=== PATIENT | female | born 1960 | race Caucasian/White ===

== ENCOUNTER 2024-06-26 09:38 | Outpatient (CLI) | payer OTHER | END 2024-06-26 09:39 | disposition home or self-care (01) | LOC: CSHWCC 09:38 | PROVIDERS: ATTEND Nurse Practitioner Family | DX: N30.41 Irradiation cystitis with hematuria (principal) | CPT/HCPCS: 99213; G0463 ==

== ENCOUNTER 2024-07-25 10:13 | Outpatient (CLI) | payer OTHER | END 2024-07-25 10:14 | disposition home or self-care (01) | LOC: CSHWCC 10:13 | PROVIDERS: ATTEND Nurse Practitioner Family | DX: N30.41 Irradiation cystitis with hematuria (principal); N39.498 Other specified urinary incontinence | CPT/HCPCS: G0277 ==

== ENCOUNTER 2024-07-26 10:13 | Outpatient (CLI) | payer OTHER | END 2024-07-26 10:14 | disposition home or self-care (01) | LOC: CSHWCC 10:13 | PROVIDERS: ATTEND Nurse Practitioner Family | DX: N30.41 Irradiation cystitis with hematuria (principal); N39.498 Other specified urinary incontinence | CPT/HCPCS: G0277 ==

== ENCOUNTER 2024-07-27 09:52 | Outpatient (CLI) | payer OTHER | END 2024-07-27 09:53 | disposition home or self-care (01) | LOC: CSHWCC 09:52 | PROVIDERS: ATTEND Nurse Practitioner Family | DX: N30.41 Irradiation cystitis with hematuria (principal); N39.498 Other specified urinary incontinence | CPT/HCPCS: G0277 ==

== ENCOUNTER 2024-07-30 08:30 | Outpatient (CLI) | payer OTHER | END 2024-07-30 08:31 | disposition home or self-care (01) | LOC: CSHWCC 08:30 | PROVIDERS: ATTEND Nurse Practitioner Family | DX: N30.41 Irradiation cystitis with hematuria (principal); N39.498 Other specified urinary incontinence | CPT/HCPCS: G0277 ==

== ENCOUNTER 2024-07-31 08:13 | Outpatient (CLI) | payer OTHER | END 2024-07-31 08:14 | disposition home or self-care (01) | LOC: CSHWCC 08:13 | PROVIDERS: ATTEND Nurse Practitioner Family | DX: N30.41 Irradiation cystitis with hematuria (principal); N39.498 Other specified urinary incontinence | CPT/HCPCS: G0277 ==

== ENCOUNTER 2024-08-01 09:05 | Outpatient (CLI) | payer OTHER | END 2024-08-01 09:06 | disposition home or self-care (01) | LOC: CSHWCC 09:05 | PROVIDERS: ATTEND Nurse Practitioner Family | DX: N30.41 Irradiation cystitis with hematuria (principal); N39.498 Other specified urinary incontinence | CPT/HCPCS: G0277 ==

== ENCOUNTER 2024-08-02 10:20 | Outpatient (CLI) | payer OTHER | END 2024-08-02 10:21 | disposition home or self-care (01) | LOC: CSHWCC 10:20 | PROVIDERS: ATTEND Nurse Practitioner Family | DX: N30.41 Irradiation cystitis with hematuria (principal); N39.498 Other specified urinary incontinence | CPT/HCPCS: G0277 ==

== ENCOUNTER 2024-08-06 08:27 | Outpatient (CLI) | payer OTHER | END 2024-08-06 08:28 | disposition home or self-care (01) | LOC: CSHWCC 08:27 | PROVIDERS: ATTEND Nurse Practitioner Family | DX: N30.41 Irradiation cystitis with hematuria (principal); N39.498 Other specified urinary incontinence | CPT/HCPCS: G0277 ==

== ENCOUNTER 2024-08-07 10:39 | Outpatient (CLI) | payer OTHER | END 2024-08-07 10:40 | disposition home or self-care (01) | LOC: CSHWCC 10:39 | PROVIDERS: ATTEND Nurse Practitioner Family | DX: N30.41 Irradiation cystitis with hematuria (principal); N39.498 Other specified urinary incontinence | CPT/HCPCS: G0277 ==

== ENCOUNTER 2024-08-08 11:03 | Outpatient (CLI) | payer OTHER | END 2024-08-08 11:04 | disposition home or self-care (01) | LOC: CSHWCC 11:03 | PROVIDERS: ATTEND Nurse Practitioner Family | DX: N30.41 Irradiation cystitis with hematuria (principal); N39.498 Other specified urinary incontinence | CPT/HCPCS: G0277 ==

== ENCOUNTER 2024-08-09 08:52 | Outpatient (CLI) | payer OTHER | END 2024-08-09 08:53 | disposition home or self-care (01) | LOC: CSHWCC 08:52 | PROVIDERS: ATTEND Nurse Practitioner Family | DX: N30.41 Irradiation cystitis with hematuria (principal); N39.498 Other specified urinary incontinence | CPT/HCPCS: G0277 ==

== ENCOUNTER 2024-08-13 09:23 | Outpatient (CLI) | payer OTHER | END 2024-08-13 09:24 | disposition home or self-care (01) | LOC: CSHWCC 09:23 | PROVIDERS: ATTEND Nurse Practitioner Family | DX: N30.41 Irradiation cystitis with hematuria (principal); N39.498 Other specified urinary incontinence | CPT/HCPCS: G0277 ==

== ENCOUNTER 2024-08-14 10:09 | Outpatient (CLI) | payer OTHER | END 2024-08-14 10:10 | disposition home or self-care (01) | LOC: CSHWCC 10:09 | PROVIDERS: ATTEND Nurse Practitioner Family | DX: N30.41 Irradiation cystitis with hematuria (principal); N39.498 Other specified urinary incontinence | CPT/HCPCS: G0277 ==

== ENCOUNTER 2024-08-16 15:50 | Outpatient (CLI) | payer OTHER | END 2024-08-16 15:51 | disposition home or self-care (01) | LOC: CSHWCC 15:50 | PROVIDERS: ATTEND Nurse Practitioner Family | DX: N30.41 Irradiation cystitis with hematuria (principal); N39.498 Other specified urinary incontinence | CPT/HCPCS: G0277 ==

== ENCOUNTER 2024-08-17 08:46 | Outpatient (CLI) | payer OTHER | END 2024-08-17 08:47 | disposition home or self-care (01) | LOC: CSHWCC 08:46 | PROVIDERS: ATTEND Nurse Practitioner Family | DX: N30.41 Irradiation cystitis with hematuria (principal); N39.498 Other specified urinary incontinence | CPT/HCPCS: G0277 ==

== ENCOUNTER 2024-08-20 10:36 | Outpatient (CLI) | payer OTHER | END 2024-08-20 10:37 | disposition home or self-care (01) | LOC: CSHWCC 10:36 | PROVIDERS: ATTEND Nurse Practitioner Family | DX: N30.41 Irradiation cystitis with hematuria (principal); N39.498 Other specified urinary incontinence | CPT/HCPCS: G0277 ==

== ENCOUNTER 2024-08-21 08:48 | Outpatient (CLI) | payer OTHER | END 2024-08-21 08:49 | disposition home or self-care (01) | LOC: CSHWCC 08:48 | PROVIDERS: ATTEND Nurse Practitioner Family | DX: N30.41 Irradiation cystitis with hematuria (principal); N39.498 Other specified urinary incontinence | CPT/HCPCS: G0277 ==

== ENCOUNTER 2024-08-22 08:53 | Outpatient (CLI) | payer OTHER | END 2024-08-22 08:54 | disposition home or self-care (01) | LOC: CSHWCC 08:53 | PROVIDERS: ATTEND Nurse Practitioner Family | DX: N30.41 Irradiation cystitis with hematuria (principal); N39.498 Other specified urinary incontinence | CPT/HCPCS: G0277 ==

== ENCOUNTER 2024-08-28 08:21 | Outpatient (CLI) | payer OTHER | END 2024-08-28 08:22 | disposition home or self-care (01) | LOC: CSHWCC 08:21 | PROVIDERS: ATTEND Nurse Practitioner Family | DX: N30.41 Irradiation cystitis with hematuria (principal); N39.498 Other specified urinary incontinence | CPT/HCPCS: G0277 ==

== ENCOUNTER 2024-08-29 08:17 | Outpatient (CLI) | payer OTHER | END 2024-08-29 08:18 | disposition home or self-care (01) | LOC: CSHWCC 08:17 | PROVIDERS: ATTEND Nurse Practitioner Family | DX: N30.41 Irradiation cystitis with hematuria (principal); N39.498 Other specified urinary incontinence | CPT/HCPCS: G0277 ==

== ENCOUNTER 2024-08-30 08:36 | Outpatient (CLI) | payer OTHER | END 2024-08-30 08:37 | disposition home or self-care (01) | LOC: CSHWCC 08:36 | PROVIDERS: ATTEND Nurse Practitioner Family | DX: N30.41 Irradiation cystitis with hematuria (principal); N39.498 Other specified urinary incontinence | CPT/HCPCS: G0277 ==

== ENCOUNTER 2024-09-03 10:49 | Outpatient (CLI) | payer OTHER | END 2024-09-03 10:50 | disposition home or self-care (01) | LOC: CSHWCC 10:49 | PROVIDERS: ATTEND Nurse Practitioner Family | DX: N30.41 Irradiation cystitis with hematuria (principal); N39.498 Other specified urinary incontinence | CPT/HCPCS: G0277 ==

== ENCOUNTER 2024-09-04 08:36 | Outpatient (CLI) | payer OTHER | END 2024-09-04 08:37 | disposition home or self-care (01) | LOC: CSHWCC 08:36 | PROVIDERS: ATTEND Nurse Practitioner Family | DX: N30.41 Irradiation cystitis with hematuria (principal); N39.498 Other specified urinary incontinence | CPT/HCPCS: G0277 ==

== ENCOUNTER 2024-09-05 09:45 | Outpatient (CLI) | payer OTHER | END 2024-09-05 09:46 | disposition home or self-care (01) | LOC: CSHWCC 09:45 | PROVIDERS: ATTEND Nurse Practitioner Family | DX: N30.41 Irradiation cystitis with hematuria (principal); N39.498 Other specified urinary incontinence | CPT/HCPCS: G0277 ==

== ENCOUNTER 2024-09-10 10:03 | Outpatient (CLI) | payer OTHER | END 2024-09-10 10:04 | disposition home or self-care (01) | LOC: CSHWCC 10:03 | PROVIDERS: ATTEND Nurse Practitioner Family | DX: N30.41 Irradiation cystitis with hematuria (principal); N39.498 Other specified urinary incontinence | CPT/HCPCS: G0277 ==

== ENCOUNTER 2024-09-11 08:56 | Outpatient (CLI) | payer OTHER | END 2024-09-11 08:57 | disposition home or self-care (01) | LOC: CSHWCC 08:56 | PROVIDERS: ATTEND Nurse Practitioner Family | DX: N30.41 Irradiation cystitis with hematuria (principal); N39.498 Other specified urinary incontinence | CPT/HCPCS: G0277 ==

== ENCOUNTER 2024-09-12 09:04 | Outpatient (CLI) | payer OTHER | END 2024-09-12 09:05 | disposition home or self-care (01) | LOC: CSHWCC 09:04 | PROVIDERS: ATTEND Nurse Practitioner Family | DX: N30.41 Irradiation cystitis with hematuria (principal); N39.498 Other specified urinary incontinence | CPT/HCPCS: G0277 ==

== ENCOUNTER 2024-09-13 08:45 | Outpatient (CLI) | payer OTHER | END 2024-09-13 08:46 | disposition home or self-care (01) | LOC: CSHWCC 08:45 | PROVIDERS: ATTEND Nurse Practitioner Family | DX: N30.41 Irradiation cystitis with hematuria (principal); N39.498 Other specified urinary incontinence | CPT/HCPCS: G0277 ==

== ENCOUNTER 2024-09-17 08:57 | Outpatient (CLI) | payer OTHER | END 2024-09-17 08:58 | disposition home or self-care (01) | LOC: CSHWCC 08:57 | PROVIDERS: ATTEND Nurse Practitioner Family | DX: N30.41 Irradiation cystitis with hematuria (principal); N39.498 Other specified urinary incontinence | CPT/HCPCS: G0277 ==

== ENCOUNTER 2024-09-18 09:01 | Outpatient (CLI) | payer OTHER | END 2024-09-18 09:02 | disposition home or self-care (01) | LOC: CSHWCC 09:01 | PROVIDERS: ATTEND Nurse Practitioner Family | DX: N30.41 Irradiation cystitis with hematuria (principal); N39.498 Other specified urinary incontinence | CPT/HCPCS: G0277 ==

== ENCOUNTER 2024-09-19 08:54 | Outpatient (CLI) | payer OTHER | END 2024-09-19 08:55 | disposition home or self-care (01) | LOC: CSHWCC 08:54 | PROVIDERS: ATTEND Nurse Practitioner Family | DX: N30.41 Irradiation cystitis with hematuria (principal); N39.498 Other specified urinary incontinence | CPT/HCPCS: G0277 ==

== ENCOUNTER 2024-09-20 09:31 | Outpatient (CLI) | payer OTHER | END 2024-09-20 09:32 | disposition home or self-care (01) | LOC: CSHWCC 09:31 | PROVIDERS: ATTEND Nurse Practitioner Family | DX: N30.41 Irradiation cystitis with hematuria (principal); N39.498 Other specified urinary incontinence | CPT/HCPCS: G0277 ==

== ENCOUNTER 2024-09-21 09:11 | Outpatient (CLI) | payer OTHER | END 2024-09-21 09:12 | disposition home or self-care (01) | LOC: CSHWCC 09:11 | PROVIDERS: ATTEND Nurse Practitioner Family | DX: N30.41 Irradiation cystitis with hematuria (principal); N39.498 Other specified urinary incontinence | CPT/HCPCS: G0277 ==

== ENCOUNTER 2024-09-24 08:55 | Outpatient (CLI) | payer OTHER | END 2024-09-24 08:56 | disposition home or self-care (01) | LOC: CSHWCC 08:55 | PROVIDERS: ATTEND Nurse Practitioner Family | DX: T70.0XXD Otitic barotrauma, subsequent encounter (principal); N30.41 Irradiation cystitis with hematuria; N39.498 Other specified urinary incontinence ==

== ENCOUNTER 2024-09-25 08:36 | Outpatient (CLI) | payer OTHER | END 2024-09-25 08:37 | disposition home or self-care (01) | LOC: CSHWCC 08:36 | PROVIDERS: ATTEND Nurse Practitioner Family | DX: N30.41 Irradiation cystitis with hematuria (principal); N39.498 Other specified urinary incontinence; T70.0XXD Otitic barotrauma, subsequent encounter | CPT/HCPCS: G0277 ==

== ENCOUNTER 2024-09-26 08:27 | Outpatient (CLI) | payer OTHER | END 2024-09-26 08:28 | disposition home or self-care (01) | LOC: CSHWCC 08:27 | PROVIDERS: ATTEND Nurse Practitioner Family | DX: N30.41 Irradiation cystitis with hematuria (principal); N39.498 Other specified urinary incontinence; T70.0XXD Otitic barotrauma, subsequent encounter | CPT/HCPCS: G0277 ==

== ENCOUNTER 2024-09-28 08:17 | Outpatient (CLI) | payer OTHER | END 2024-09-28 08:18 | disposition home or self-care (01) | LOC: CSHWCC 08:17 | PROVIDERS: ATTEND Nurse Practitioner Family | DX: T70.0XXD Otitic barotrauma, subsequent encounter (principal); N30.41 Irradiation cystitis with hematuria; N39.498 Other specified urinary incontinence | CPT/HCPCS: G0277 ==

== ENCOUNTER 2024-10-01 09:10 | Outpatient (CLI) | payer OTHER | END 2024-10-01 09:11 | disposition home or self-care (01) | LOC: CSHWCC 09:10 | PROVIDERS: ATTEND Nurse Practitioner Family | DX: T70.0XXD Otitic barotrauma, subsequent encounter (principal); N30.41 Irradiation cystitis with hematuria; N39.498 Other specified urinary incontinence | CPT/HCPCS: G0277 ==

== ENCOUNTER 2024-10-02 09:22 | Outpatient (CLI) | payer OTHER | END 2024-10-02 09:23 | disposition home or self-care (01) | LOC: CSHWCC 09:22 | PROVIDERS: ATTEND Nurse Practitioner Family | DX: N30.41 Irradiation cystitis with hematuria (principal); N39.498 Other specified urinary incontinence; T70.0XXD Otitic barotrauma, subsequent encounter | CPT/HCPCS: G0277 ==

== ENCOUNTER 2024-10-03 09:28 | Outpatient (CLI) | payer OTHER | END 2024-10-03 09:29 | disposition home or self-care (01) | LOC: CSHWCC 09:28 | PROVIDERS: ATTEND Nurse Practitioner Family | DX: N30.41 Irradiation cystitis with hematuria (principal); N39.498 Other specified urinary incontinence; T70.0XXD Otitic barotrauma, subsequent encounter | CPT/HCPCS: G0277 ==

== ENCOUNTER 2024-10-05 08:19 | Outpatient (CLI) | payer OTHER | END 2024-10-05 08:20 | disposition home or self-care (01) | LOC: CSHWCC 08:19 | PROVIDERS: ATTEND Nurse Practitioner Family | DX: T70.0XXD Otitic barotrauma, subsequent encounter (principal); N30.41 Irradiation cystitis with hematuria; N39.498 Other specified urinary incontinence | CPT/HCPCS: G0277 ==

== ENCOUNTER 2024-10-08 09:34 | Outpatient (CLI) | payer OTHER | END 2024-10-08 09:35 | disposition home or self-care (01) | LOC: CSHWCC 09:34 | PROVIDERS: ATTEND Nurse Practitioner Family | DX: T70.0XXD Otitic barotrauma, subsequent encounter (principal); N30.41 Irradiation cystitis with hematuria; N39.498 Other specified urinary incontinence | CPT/HCPCS: G0277 ==

== ENCOUNTER 2024-10-09 09:47 | Outpatient (CLI) | payer OTHER | END 2024-10-09 09:48 | disposition home or self-care (01) | LOC: CSHWCC 09:47 | PROVIDERS: ATTEND Nurse Practitioner Family | DX: T70.0XXD Otitic barotrauma, subsequent encounter (principal); N30.41 Irradiation cystitis with hematuria; N39.498 Other specified urinary incontinence | CPT/HCPCS: G0277 ==

== ENCOUNTER 2024-10-11 08:29 | Outpatient (CLI) | payer OTHER | END 2024-10-11 08:30 | disposition home or self-care (01) | LOC: CSHWCC 08:29 | PROVIDERS: ATTEND Family Medicine | DX: N30.41 Irradiation cystitis with hematuria (principal); N39.498 Other specified urinary incontinence; T70.0XXD Otitic barotrauma, subsequent encounter | CPT/HCPCS: G0277 ==

== ENCOUNTER 2024-10-15 11:08 | Outpatient (CLI) | payer OTHER | END 2024-10-15 11:09 | disposition home or self-care (01) | LOC: CSHWCC 11:08 | PROVIDERS: ATTEND Family Medicine | DX: N30.41 Irradiation cystitis with hematuria (principal); N39.498 Other specified urinary incontinence; T70.0XXD Otitic barotrauma, subsequent encounter | CPT/HCPCS: G0277 ==

== ENCOUNTER 2024-10-16 09:12 | Outpatient (CLI) | payer OTHER | END 2024-10-16 09:13 | disposition home or self-care (01) | LOC: CSHWCC 09:12 | PROVIDERS: ATTEND Nurse Practitioner Family | DX: T70.0XXD Otitic barotrauma, subsequent encounter (principal); N30.41 Irradiation cystitis with hematuria; N39.498 Other specified urinary incontinence | CPT/HCPCS: G0277 ==

== ENCOUNTER 2024-10-17 12:01 | Outpatient (CLI) | payer OTHER | END 2024-10-17 12:02 | disposition home or self-care (01) | LOC: CSHWCC 12:01 | PROVIDERS: ATTEND Nurse Practitioner Family | DX: N30.41 Irradiation cystitis with hematuria (principal); N39.498 Other specified urinary incontinence; T70.0XXD Otitic barotrauma, subsequent encounter | CPT/HCPCS: G0277 ==

== ENCOUNTER 2024-10-18 08:50 | Outpatient (CLI) | payer OTHER | END 2024-10-18 08:51 | disposition home or self-care (01) | LOC: CSHWCC 08:50 | PROVIDERS: ATTEND Nurse Practitioner Family | DX: T70.0XXD Otitic barotrauma, subsequent encounter (principal); N30.41 Irradiation cystitis with hematuria; N39.498 Other specified urinary incontinence | CPT/HCPCS: G0277 ==

== ENCOUNTER 2024-10-19 08:26 | Outpatient (CLI) | payer OTHER | END 2024-10-19 08:27 | disposition home or self-care (01) | LOC: CSHWCC 08:26 | PROVIDERS: ATTEND Nurse Practitioner Family | DX: T70.0XXD Otitic barotrauma, subsequent encounter (principal); N30.41 Irradiation cystitis with hematuria; N39.498 Other specified urinary incontinence | CPT/HCPCS: G0277 ==

== ENCOUNTER 2024-10-22 09:53 | Outpatient (CLI) | payer OTHER | END 2024-10-22 09:54 | disposition home or self-care (01) | LOC: CSHWCC 09:53 | PROVIDERS: ATTEND Nurse Practitioner Family | DX: T70.0XXD Otitic barotrauma, subsequent encounter (principal); N30.41 Irradiation cystitis with hematuria; N39.498 Other specified urinary incontinence | CPT/HCPCS: G0277 ==

== ENCOUNTER 2024-10-23 08:18 | Outpatient (CLI) | payer OTHER | END 2024-10-23 08:19 | disposition home or self-care (01) | LOC: CSHWCC 08:18 | PROVIDERS: ATTEND Nurse Practitioner Family | DX: T70.0XXD Otitic barotrauma, subsequent encounter (principal); N30.41 Irradiation cystitis with hematuria; N39.498 Other specified urinary incontinence | CPT/HCPCS: G0277 ==

== ENCOUNTER 2024-10-24 08:17 | Outpatient (CLI) | payer OTHER | END 2024-10-24 08:18 | disposition home or self-care (01) | LOC: CSHWCC 08:17 | PROVIDERS: ATTEND Nurse Practitioner Family | DX: T70.0XXD Otitic barotrauma, subsequent encounter (principal); N30.41 Irradiation cystitis with hematuria; N39.498 Other specified urinary incontinence | CPT/HCPCS: G0277 ==

== ENCOUNTER 2024-10-25 12:31 | Outpatient (CLI) | payer OTHER | END 2024-10-25 12:32 | disposition home or self-care (01) | LOC: CSHWCC 12:31 | PROVIDERS: ATTEND Nurse Practitioner Family | DX: N30.41 Irradiation cystitis with hematuria (principal); T70.0XXA Otitic barotrauma, initial encounter; N39.498 Other specified urinary incontinence | CPT/HCPCS: G0277 ==

== ENCOUNTER 2024-10-26 09:02 | Outpatient (CLI) | payer OTHER | END 2024-10-26 09:03 | disposition home or self-care (01) | LOC: CSHWCC 09:02 | PROVIDERS: ATTEND Nurse Practitioner Family | DX: N30.41 Irradiation cystitis with hematuria (principal); T70.0XXA Otitic barotrauma, initial encounter; N39.498 Other specified urinary incontinence | CPT/HCPCS: G0277 ==

== ENCOUNTER 2024-11-05 09:46 | Outpatient (CLI) | payer OTHER | END 2024-11-05 09:47 | disposition home or self-care (01) | LOC: CSHWCC 09:46 | PROVIDERS: ATTEND Nurse Practitioner Family | DX: N30.41 Irradiation cystitis with hematuria (principal); N39.498 Other specified urinary incontinence | CPT/HCPCS: G0277 ==

== ENCOUNTER 2024-11-06 09:32 | Outpatient (CLI) | payer OTHER | END 2024-11-06 09:33 | disposition home or self-care (01) | LOC: CSHWCC 09:32 | PROVIDERS: ATTEND Nurse Practitioner Family | DX: N30.41 Irradiation cystitis with hematuria (principal); N39.498 Other specified urinary incontinence | CPT/HCPCS: G0277 ==

== ENCOUNTER 2024-11-08 09:02 | Outpatient (CLI) | payer OTHER | END 2024-11-08 09:03 | disposition home or self-care (01) | LOC: CSHWCC 09:02 | PROVIDERS: ATTEND Nurse Practitioner Family | DX: N30.41 Irradiation cystitis with hematuria (principal); N39.498 Other specified urinary incontinence | CPT/HCPCS: G0277 ==